=== PATIENT | female | born 1980 | race Caucasian/White ===

== ENCOUNTER 2020-09-07 15:01 | Emergency (ER) | payer MEDICAID, OTHER ==
[2020-09-07] MEDS ORDERED: Diphtheria,Pertussis(Acell),Tetanus Vaccine 0.5 ML Syringe IM ONE (15:28)
--- NOTE | 2020-09-07 15:31 | EDM.PDOC ---
ED HPI GENERAL MEDICAL PROBLEM - General Chief Complaint: Bite:Animal, Insect Stated Complaint: ANIMAL BITE-CAT Time Seen by Provider: 09/07/20 15:21 Source of Information: Reports: Patient History Limitations: Reports: No Limitations - History of Present Illness INITIAL COMMENTS - FREE TEXT/NARRATIVE: 40-year-old female presents the emergency department after she was bit by a cat. 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 Patient states that the cat bit her on the hand. She does have 4 punctures wounds noted to the thenar area of the right hand. She states she placed hydrogen peroxide on it and then apply topical Neosporin. This happened just prior to arrival. Right Hand Pain Score (Numeric/FACES): 5 - Related Data Allergies Allergy/AdvReac Type Severity Reaction Status Date / Time No Known Allergies Allergy Verified 09/07/20 15:22 Home Meds: Home Meds Amoxicillin/Potassium Clav [Augmentin 875-125 Tablet] 1 each PO BID #20 tablet 09/07/20 [Rx] Past Medical History - Past Health History Medical/Surgical History: Denies Medical/Surgical History Social & Family History - Tobacco Use Tobacco Use Status *Q: Never Tobacco User - Caffeine Use Caffeine Use: Reports: Coffee, Soda, Tea - Recreational Drug Use Recreational Drug Use: No ED ROS GENERAL - Review of Systems Review Of Systems: Comprehensive ROS is negative, except as noted in HPI. ED EXAM, ANIMAL BITE - Physical Exam Exam: See Below Exam Limited By: No Limitations General Appearance: Alert, WD/WN, No Apparent Distress Ears: Normal External Exam, Hearing Grossly Normal Nose: Normal Inspection Throat/Mouth: Normal Inspection, Normal Lips, Normal Voice, No Airway Compromise Head: Atraumatic Neck: Normal Inspection, Supple Respiratory/Chest: No Respiratory Distress, No Accessory Muscle Use Cardiovascular: Normal Peripheral Pulses, Regular Rate, Rhythm GI/Abdominal: No Distention (Female) Exam: Deferred Rectal (Female) Exam: Deferred Back Exam: Normal Inspection Extremities: Normal Range of Motion, Normal Capillary Refill. No: Normal Inspection (Thenar area of right hand with 4 puncture wounds noted from a cat bite) Neurological: Alert, Oriented, Normal Cognition, Normal Reflexes Psychiatric: Normal Affect, Normal Mood Skin Exam: Normal Color, Warm/Dry Lymphatic: No Adenopathy Course - Vital Signs Text/Narrative:: Patient presents with a cat bite to the thenar area of the right hand. There are 4 puncture wounds noted to this area. Patient is requesting tetanus shot as she states hers is not up-to-date. She will be started Augmentin 875 twice daily for 10 days. She can follow-up with her primary care provider after that time for reevaluation. Last Recorded V/S: Last Vital Signs Temp 98.5 F 09/07/20 15:21 Pulse 77 09/07/20 15:21 Resp 20 09/07/20 15:21 BP 158/102 H 09/07/20 15:21 Pulse Ox 99 09/07/20 15:21 Departure - Departure Time of Disposition: 15:34 Disposition: Home, Self-Care 01 Condition: Good Clinical Impression: Cat bite of hand Qualifiers: Encounter type: initial encounter Laterality: right Qualified Code(s): S61.451A - Open bite of right hand, initial encounter; W55.01XA - Bitten by cat, initial encounter - Discharge Information Prescriptions: Amoxicillin/Potassium Clav [Augmentin 875-125 Tablet] 1 each PO BID #20 tablet Referrals: Jami Urena PA-C [Primary Care Provider] - Additional Instructions: You are seen in the emergency department today with a cat bite on your hand that occurred just prior to arrival. You were given a tetanus shot please update this in your home records somewhere as it is good for 10 years. He stated that the cats vaccinations were all up-to-date so no further testing should be warranted. I have sent a prescription to your pharmacy for Augmentin 875 mg. This needs to be taken twice daily for 10 days. Be sure to follow-up with your primary care provider once you have completed this round of antibiotics for reevaluation. Should your condition worsen or change, do not hesitate returning to the emergency department. Sepsis Event Note (ED) - Evaluation Sepsis Screening Result: No Definite Risk - Focused Exam Vital Signs: Vital Signs Temp Pulse Resp BP Pulse Ox 09/07/20 15:21 98.5 F 77 20 158/102 H 99
== END 2020-09-07 15:47 | disposition home or self-care (01) ==
LOC: JD.ED 15:01
DX: S61.451A Open bite of right hand, initial encounter (principal); Z23 Encounter for immunization; W55.01XA Bitten by cat, initial encounter; Y92.59 Other trade areas as the place of occurrence of the external cause; Y99.0 Civilian activity done for income or pay
CPT/HCPCS: 90471; 90715; 99283

== ENCOUNTER 2020-09-08 11:45 | Emergency (ER) | payer OTHER ==
[2020-09-08] MEDS ORDERED: Sodium Chloride 0.9% 10 ML Syringe FLUSH PRN (12:03)
[2020-09-08] MEDS ORDERED: Ampicillin/Sulbactam Na 3 GM in Sodium Chloride 0.9% 100 ML IV ONE ×2 (12:04→12:15)
--- NOTE | 2020-09-08 12:52 | EDM.PDOC ---
ED HPI GENERAL MEDICAL PROBLEM - General Chief Complaint: Bite:Animal, Insect Stated Complaint: ANIMAL BITE ON R HAND Time Seen by Provider: 09/08/20 11:55 Source of Information: Reports: Patient, RN Notes Reviewed History Limitations: Reports: No Limitations - History of Present Illness INITIAL COMMENTS - FREE TEXT/NARRATIVE: Patient is a 40-year-old female presenting to the emergency department today for evaluation of a cat bite to her right hand. She reports she sustained a cat bite at work yesterday. She was seen in this ER yesterday and started on Augmentin. She has taken 2 doses of this. She is concerned with the development of redness and warmth to the area. She has had no fever, chills, nausea, vomiting but states that she overall "does not feel good ". 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: Reports: Ectopic , Endometriosis, Other (See Below) Other MEDICARE COMPLIANCE AUDITOR History: Ovarian Cyst Removed Neurological History: Reports: Migraines Endocrine/Metabolic History: Reports: Obesity/BMI 30+ - Past Surgical History Female Surgical History: Reports: Tubal Ligation, Other (See Below) Other Female Surgeries/Procedures: Ovary Removed Social & Family History - Tobacco Use Tobacco Use Status *Q: Never Tobacco User - Caffeine Use Caffeine Use: Reports: Coffee, Soda - Recreational Drug Use Recreational Drug Use: No ED ROS GENERAL - Review of Systems Review Of Systems: See Below Constitutional: Denies: Fever, Chills, Decreased Appetite HEENT: Reports: No Symptoms Respiratory: Reports: No Symptoms Cardiovascular: Reports: No Symptoms Endocrine: Reports: No Symptoms GI/Abdominal: Reports: No Symptoms. Denies: Nausea, Vomiting : Reports: No Symptoms Musculoskeletal: Reports: No Symptoms Skin: Reports: Other (Cat bite to right hand with redness and swelling.) Neurological: Reports: No Symptoms Psychiatric: Reports: No Symptoms Hematologic/Lymphatic: Reports: No Symptoms Immunologic: Reports: No Symptoms ED EXAM, ANIMAL BITE - Physical Exam Exam: See Below Exam Limited By: No Limitations General Appearance: Alert, WD/WN, No Apparent Distress Respiratory/Chest: No Respiratory Distress, Lungs Clear, Normal Breath Sounds, No Accessory Muscle Use, Chest Non-Tender Cardiovascular: Normal Peripheral Pulses, Regular Rate, Rhythm, No Edema, No Gallop, No JVD, No Murmur, No Rub Extremities: Other (5 puncture wounds to the right thenar eminence with 11 cm x 7 cm area of redness swelling. No drainage.) Neurological: Alert, Oriented, CN II-XII Intact, Normal Cognition, Normal Gait, Normal Reflexes, No Motor/Sensory Deficits Psychiatric: Normal Affect, Normal Mood Course - Vital Signs Last Recorded V/S: Last Vital Signs Temp 96.4 F L 09/08/20 11:51 Pulse 76 09/08/20 11:51 Resp 16 09/08/20 11:51 BP 157/98 H 09/08/20 11:51 Pulse Ox 100 09/08/20 11:51 - Orders/Labs/Meds Labs: Laboratory Tests 09/08/20 09/08/20 Range/Units 12:04 12:20 WBC 7.12 (3.98-10.04) K/mm3 RBC 4.31 (3.98-5.22) M/mm3 Hgb 12.8 (11.2-15.7) gm/dl Hct 37.7 (34.1-44.9) % MCV 87.5 (79.4-94.8) fl MCH 29.7 (25.6-32.2) pg MCHC 34.0 (32.2-35.5) g/dl RDW Std Deviation 44.1 (36.4-46.3) fL Plt Count 229 (182-369) K/mm3 MPV 10.1 (9.4-12.3) fl Neut % (Auto) 71.4 H (34.0-71.1) % Lymph % (Auto) 21.5 (19.3-51.7) % Gove % (Auto) 6.0 (4.7-12.5) % Eos % (Auto) 0.7 (0.7-5.8) Baso % (Auto) 0.3 (0.1-1.2) % Neut # (Auto) 5.08 (1.56-6.13) K/mm3 Lymph # (Auto) 1.53 (1.18-3.74) K/mm3 Gove # (Auto) 0.43 H (0.24-0.36) K/mm3 Eos # (Auto) 0.05 (0.04-0.36) K/mm3 Baso # (Auto) 0.02 (0.01-0.08) K/mm3 Sodium 144 (136-145) mEq/L Potassium 3.9 (3.5-5.1) mEq/L Chloride 107 (98-107) mEq/L Carbon Dioxide 26 (21-32) mEq/L Anion Gap 14.9 (5-15) BUN 15 (7-18) mg/dL Creatinine 0.8 (0.55-1.02) mg/dL Est Cr Clr Drug Dosing 79.91 mL/min Estimated GFR (MDRD) > 60 (>60) mL/min BUN/Creatinine Ratio 18.8 H (14-18) Glucose 98 (70-99) mg/dL Calcium 8.7 (8.5-10.1) mg/dL Total Bilirubin 1.4 H (0.2-1.0) mg/dL AST 29 (15-37) U/L ALT 41 (14-59) U/L Alkaline Phosphatase 68 (46-116) U/L C-Reactive Protein 2.1 H* (<1.0) mg/dL Total Protein 7.5 (6.4-8.2) g/dl Albumin 3.8 (3.4-5.0) g/dl Globulin 3.7 gm/dL Albumin/Globulin Ratio 1.0 (1-2) Meds: Medications Discontinued Medications Generic Name Dose Route Start Last Admin Trade Name Freq PRN Reason Stop Dose Admin Ampicillin Sodium/Sulbactam 100 mls @ 200 mls/hr 09/08/20 12:15 09/08/20 12:22 Sodium 3 gm/ Sodium Chloride IV 09/08/20 12:44 200 mls/hr ONETIME ONE Administration Sodium Chloride 10 ml 09/08/20 12:03 09/08/20 12:15 Sodium Chloride 0.9% 10 Ml Syringe FLUSH 10 ml ASDIRECTED PRN Administration Keep Vein Open - Re-Assessments/Exams Free Text/Narrative Re-Assessment/Exam: Patient is a 40-year-old female presenting to the emergency department today for evaluation of cat bite to the right hand. Was seen here yesterday and started on Augmentin for infection prophylaxis. Today she has some mild redness and swelling to the right thenar eminence with a small area of extension into the ventral wrist. There is no visible drainage at this time. It does appear that there is some infection beginning, therefore I will give Unasyn 3 g IV now. Have ordered blood work. 09/08/20 13:08 Hematology is grossly unremarkable. White blood cells are normal. Patient is currently prescribed Augmentin. In addition to this I will have her start Levaquin to provide double coverage. Recommend that she follow-up with her primary care provider tomorrow to closely monitor the infection. If it appears to be worsening, she should return to the emergency department. She is in agreement with this plan. Discharge instructions as documented. Departure - Departure Time of Disposition: 14:00 Disposition: Home, Self-Care 01 Condition: Good Clinical Impression: Cat bite of hand Qualifiers: Encounter type: initial encounter Laterality: right Qualified Code(s): S61.451A - Open bite of right hand, initial encounter - Discharge Information Prescriptions: levoFLOXacin [Levaquin] 750 mg PO DAILY #7 tab Instructions: Animal Bite, Adult, Fevn-go-Haok Referrals: Jami Urena PA-C [Primary Care Provider] - Forms: ED Department Discharge Additional Instructions: You were seen in the emergency department today for evaluation of cat bite to your right hand. While in the ER, you had blood work completed which was found to be overall normal. You did receive IV antibiotics. Recommend that you continue your Augmentin as previously prescribed. In addition, you have been started on Levaquin. Take this medication in addition to the Augmentin. Recommend follow-up in the clinic tomorrow with your primary care provider to have the hand checked. If you feel that the symptoms are worsening in any way or you develop onset of fever, nausea, or vomiting, please not hesitate to return to the emergency department for reevaluation. Sepsis Event Note (ED) - Evaluation Sepsis Screening Result: No Definite Risk
== END 2020-09-08 14:00 | disposition home or self-care (01) ==
LOC: JD.ED 11:45
DX: S61.451A Open bite of right hand, initial encounter (principal); E66.9 Obesity, unspecified; Z68.38 Body mass index [BMI] 38.0-38.9, adult; W55.01XA Bitten by cat, initial encounter
CPT/HCPCS: 36415; 80053; 85025; 86140; 96365; 99283; J0295

== ENCOUNTER 2022-04-24 11:57 | Emergency (ER) | payer SELFPAY ==
[2022-04-24] MEDS ORDERED: Sodium Chloride 0.9% 10 ML Syringe FLUSH PRN (12:45)
== END 2022-04-24 14:33 | disposition home or self-care (01) ==
LOC: JD.ED 11:57
DX: R10.10 Upper abdominal pain, unspecified (principal); R03.0 Elevated blood-pressure reading, without diagnosis of hypertension; E66.9 Obesity, unspecified; Z91.048 Other nonmedicinal substance allergy status; Z68.24 Body mass index [BMI] 24.0-24.9, adult; Z86.16 Personal history of COVID-19
CPT/HCPCS: 36415; 71045; 80053; 83735; 84484; 85025; 85610; 93005; 99284; J3490; 93010